=== PATIENT | female | born 1975 | race African-American/Black ===

== ENCOUNTER 2022-01-12 15:31 | Emergency (ER) | payer MEDICAID ==
[~2022-01-12] VITALS: Ht 172.7 cm; Wt 75.0 kg
[~2022-01-12 15:31] MED LIST: DOCU-138 MT; FERR325T6 MT
[2022-01-12 15:43] VITALS: BP 135/84
[2022-01-13] MEDS ORDERED: FERR236T3 MT (14:38)
== END 2022-01-12 18:58 | disposition left against medical advice (07) ==
LOC: ER 15:31
DX: Z53.21 Procedure and treatment not carried out due to patient leaving prior to being seen by health care provider (principal)

== ENCOUNTER 2022-01-13 05:04 | Inpatient (IN) | payer MEDICAID ==
[~2022-01-13] VITALS: Ht 162.6 cm; Wt 74.8 kg
[2022-01-13 07:54] LABS: HEMATOCRIT. 21.5 % (36.0-48.0); MEAN CORPUSCULAR HEMOGLOBIN 15.1 pg (28.0-32.0); MEAN CORPUSCULAR VOLUME 56.1 fL (81.0-99.0); RED BLOOD CELL COUNT 3.83 mill/uL (4.2-5.4); RED CELL DISTRIBUTION WIDTH 26.9 % (11.6-14.6)
[2022-01-13 07:58] LABS: CHLORIDE 106 mEq/L (98-107)
[2022-01-13 08:01] LABS: INR 1.1
[2022-01-13 08:09] LABS: HCG SCREEN NEGATIVE
[2022-01-13 08:12] LABS: HEMOGLOBIN. 5.8 g/dL (12.0-16.0); TOTAL IRON BINDING CAPACITY 531 ug/dL (250-450)
[2022-01-13 10:11] LABS: PLATELET 181 x1000/uL (130-400)
[2022-01-13] MEDS ORDERED: ONDANSETRON HCL 4MG/2ML INJ IV PRN ×2 (10:15→12:30)
[2022-01-13] MEDS ORDERED: CLONIDINE 0.1MG TABLET PO PRN (10:15)
[2022-01-13] MEDS ORDERED: MAGNESIUM/ALUMINUM HYDROXIDE/SIMETHICONE 30ML UDC PO PRN (10:15)
[2022-01-13] MEDS ORDERED: ACETAMINOPHEN 325MG TABLET PO PRN ×2 (10:15→12:30)
[2022-01-13 10:17] LABS: PLATELET ESTIMATE NORMAL
[2022-01-13 10:56] LABS: CLARITY URINE TURBID (CLEAR); COLOR URINE YELLOW (YELLOW); KETONES URINE NEGATIVE (NEGATIVE); LEUKOCYTE ESTERASE URINE TRACE (NEGATIVE); NITRITE URINE NEGATIVE (NEGATIVE); OCCULT BLOOD URINE 3+ (NEGATIVE); PH URINE 5.5 (4.5-8.0); PROTEIN URINE 1+ (NEGATIVE); SPECIFIC GRAVITY URINE 1.018 (1.005-1.030); UROBILINOGEN URINE 0.2 E.U./dL (0.2-1.0)
[2022-01-13] MEDS ORDERED: FERR236T3 MT (14:38)
[2022-01-13 15:19] VITALS: BP 125/78
[2022-01-13 16:40] LABS: HEMOGLOBIN 5.8 g/dL (12.0-16.0)
[2022-01-13 16:41] LABS: HEMATOCRIT 20.1 % (36.0-48.0)
[2022-01-13 20:00] VITALS: BP 99/66
[2022-01-13] MEDS ORDERED: ZOLPIDEM TARTRATE 5MG TABLET PO PRN (21:00)
[2022-01-13 21:18] VITALS: BP 99/66
[2022-01-13 21:36] VITALS: BP 107/69
[2022-01-13 22:18] VITALS: BP 99/68
[2022-01-13 23:18] VITALS: BP 111/69
[2022-01-14] VITALS (10 sets, daily range): BP systolic 95–106; BP diastolic 58–75
[2022-01-14 00:26] LABS: HEMATOCRIT 22.1 % (36.0-48.0)
[2022-01-14 00:34] LABS: HEMOGLOBIN 6.6 g/dL (12.0-16.0)
[2022-01-14] MEDS ORDERED: FERROUS SULFATE 325MG TABLET PO SCH (09:00)
[2022-01-14] MEDS ORDERED: DOCUSATE SODIUM 100MG CAPSULE PO SCH (09:00)
[2022-01-14 09:20] LABS: CHLORIDE 110 mEq/L (98-107)
[2022-01-14 09:23] LABS: HEMATOCRIT. 26.8 % (36.0-48.0); HEMOGLOBIN. 8.4 g/dL (12.0-16.0); MEAN CORPUSCULAR HEMOGLOBIN 21.1 pg (28.0-32.0); MEAN CORPUSCULAR VOLUME 67.6 fL (81.0-99.0); PLATELET 192 x1000/uL (130-400); RED BLOOD CELL COUNT 3.97 mill/uL (4.2-5.4); RED CELL DISTRIBUTION WIDTH 37.5 % (11.6-14.6)
[2022-01-14 12:30] LABS: PLATELET ESTIMATE NORMAL
== END 2022-01-14 14:15 | disposition home or self-care (01) | DRG 663 ==
LOC: ER 05:04 → 6EST 08:58 → EDBEDREQSVC 09:08 → EDBEDREQTM 09:08 → EDBEDREQ 09:08 → ENRESERV 09:16
PROVIDERS: ADMIT Internal Medicine; ATTEND Internal Medicine
PROC: 30233N1 Transfusion of Nonautologous Red Blood Cells into Peripheral Vein, Percutaneous Approach (ICD-10-PCS; principal; 2022-01-13)
DX: D64.9 Anemia, unspecified (principal); D25.9 Leiomyoma of uterus, unspecified; Z79.899 Other long term (current) drug therapy
CPT/HCPCS: 36415; 71045; 80048; 80053; 81003; 83540; 83550; 83880; 84703; 85014; 85018; 85025; 85044; 86850; 86900; 86920; 93005; 99291; P9016